=== PATIENT | male | born 1980 | race Caucasian/White ===

== ENCOUNTER 2017-02-21 17:08 | Inpatient (IN) | payer BC ==
[~2017-02-21] VITALS: Ht 175.3 cm; Wt 109.1 kg
[~2017-02-21 17:08] MED LIST: FLEXERIL 1010 MG/TAB PO; NORCO 325 MG-51 TAB PO
[2017-02-21] MEDS ORDERED: PRINZIDE 25 MG-1 TAB PO (17:14)
[2017-02-21 18:39] LABS: BASO # 0.1 (0.0-0.2); BASO % 0.4 % (0.0-2.0); EOS % 0.1 % (0-4.0); GRAN # 10.3 (1.4-6.5); GRAN % 74.6 % (42.2-75.2); HEMATOCRIT 45.4 % (42.0-52.0); HEMOGLOBIN 16.3 g/dl (13.5-18.0); LYMPH # 2.7 (1.2-3.4); LYMPH % 19.3 % (20.0-51.0); MEAN CELL VOLUME 86 fl (80.0-100.0); MEAN CORPUSCULAR HEMOGLOBIN 31 pg (27.0-31.0); MEAN CORPUSCULAR HGB CONC 36 g/dl (33.0-37.0); MEAN PLATELET VOLUME 10.9 fl (7.4-10.4); MONO # 0.7 (0.1-0.6); MONO % 5.2 % (1.7-9.3); PLATELET COUNT 224 K/mm3 (130-400); RED BLOOD COUNT 5.29 M/mm3 (4.20-5.60); REDCELL DISTRIBUTION WIDTH-CV 12.3 % (11.5-14.5); WHITE BLOOD COUNT 13.8 K/mm3 (4.8-10.8)
[2017-02-21 18:53] LABS: ANION GAP 15 mmol/L (7-16); BLOOD UREA NITROGEN 17 mg/dL (9-20); C-REACTIVE PROTEIN < 0.5 mg/dL (0.0-0.9); CALCIUM 10.2 mg/dL (8.4-10.2); CARBON DIOXIDE 28 mmol/L (22-30); CHLORIDE 94 mmol/L (98-107); CREATININE, serum 1.08 mg/dL (0.66-1.25); GLUCOSE 119 mg/dL (74-106); POTASSIUM 3.3 mmol/L (3.4-5.0); SODIUM 137 mmol/L (137-145)
[2017-02-21 20:40] LABS: CEREBROSPINAL TUBE #1; CSF APPEARANCE HAZY; CSF COLOR COLORLESS
[2017-02-21 20:51] LABS: CEREBROSPINAL TUBE #4; CSF APPEARANCE HAZY; CSF COLOR COLORLESS
[2017-02-21 22:51] LABS: CALCIUM 9.4 mg/dL (8.4-10.2); CREATININE, serum 1.01 mg/dL (0.66-1.25); POTASSIUM 3.2 mmol/L (3.4-5.0)
[2017-02-21 23:09] VITALS: BP 156/75; PULSE 101; TEMP 97.9
[2017-02-22 03:21] VITALS: BP 129/72; PULSE 78; TEMP 98
[2017-02-22 08:01] LABS: BASO % 0.2 % (0.0-2.0); GRAN # 9.7 (1.4-6.5); GRAN % 78.9 % (42.2-75.2); HEMATOCRIT 43.6 % (42.0-52.0); LYMPH # 2.1 (1.2-3.4); LYMPH % 16.8 % (20.0-51.0); MEAN CELL VOLUME 88 fl (80.0-100.0); MEAN CORPUSCULAR HEMOGLOBIN 30 pg (27.0-31.0); MEAN CORPUSCULAR HGB CONC 34 g/dl (33.0-37.0); MEAN PLATELET VOLUME 11.4 fl (7.4-10.4); MONO # 0.4 (0.1-0.6); MONO % 3.4 % (1.7-9.3); PLATELET COUNT 232 K/mm3 (130-400); RED BLOOD COUNT 4.94 M/mm3 (4.20-5.60); REDCELL DISTRIBUTION WIDTH-CV 12.6 % (11.5-14.5); WHITE BLOOD COUNT 12.3 K/mm3 (4.8-10.8)
[2017-02-22 08:48] VITALS: BP 127/83; PULSE 71; TEMP 97.9
[2017-02-22 12:55] VITALS: BP 150/98; PULSE 91; TEMP 98.6
[2017-02-22 16:10] VITALS: BP 151/96; PULSE 83; TEMP 98
[2017-02-22 18:12] LABS: HEMATOCRIT 43.1 % (42.0-52.0); HEMOGLOBIN 15.1 g/dl (13.5-18.0); MEAN CELL VOLUME 88 fl (80.0-100.0); MEAN CORPUSCULAR HEMOGLOBIN 31 pg (27.0-31.0); MEAN CORPUSCULAR HGB CONC 35 g/dl (33.0-37.0); MEAN PLATELET VOLUME 11.1 fl (7.4-10.4); PLATELET COUNT 219 K/mm3 (130-400); RED BLOOD COUNT 4.92 M/mm3 (4.20-5.60); REDCELL DISTRIBUTION WIDTH-CV 12.7 % (11.5-14.5); WHITE BLOOD COUNT 19.3 K/mm3 (4.8-10.8)
[2017-02-22 18:21] LABS: CALCIUM 9.5 mg/dL (8.4-10.2); CREATININE, serum 0.95 mg/dL (0.66-1.25); POTASSIUM 3.8 mmol/L (3.4-5.0)
[2017-02-22 21:20] VITALS: BP 138/97; PULSE 65; TEMP 97.5
[2017-02-23 00:38] VITALS: BP 142/88; PULSE 70; TEMP 97.7
[2017-02-23 05:45] VITALS: BP 122/72; PULSE 69; TEMP 98.2
[2017-02-23 07:32] LABS: HEMOGLOBIN 14.9 g/dl (13.5-18.0); MEAN CELL VOLUME 89 fl (80.0-100.0); MEAN CORPUSCULAR HEMOGLOBIN 31 pg (27.0-31.0); MEAN CORPUSCULAR HGB CONC 35 g/dl (33.0-37.0); MEAN PLATELET VOLUME 11.4 fl (7.4-10.4); PLATELET COUNT 195 K/mm3 (130-400); RED BLOOD COUNT 4.83 M/mm3 (4.20-5.60); REDCELL DISTRIBUTION WIDTH-CV 12.6 % (11.5-14.5); WHITE BLOOD COUNT 12.5 K/mm3 (4.8-10.8)
[2017-02-23 07:40] LABS: ADJUSTED CALCIUM 9.2 mg/dL (8.4-10.2); ALBUMIN 3.6 gm/dL (3.5-5.0); BILIRUBIN,TOTAL 0.9 mg/dL (0.0-1.0); CALCIUM 8.9 mg/dL (8.4-10.2); CREATININE, serum 1.03 mg/dL (0.66-1.25); POTASSIUM 3.9 mmol/L (3.4-5.0); TOTAL PROTEIN 6.5 gm/dL (6.4-8.2)
[2017-02-23 08:29] VITALS: BP 139/84; PULSE 62; TEMP 98.3
[2017-02-23 12:59] VITALS: BP 131/91; PULSE 68; TEMP 98.1
[2017-02-23 16:08] VITALS: BP 117/68; PULSE 66; TEMP 98.2
[2017-02-23 19:54] LABS: AMPHETAMINE URINE NEGATIVE; BARBITURATES URINE NEGATIVE; BENZODIAZEPINES URINE NEGATIVE; BUPRENORPHINE URINE NEGATIVE; METHADONE URINE NEGATIVE; OPIATES URINE NEGATIVE; OXYCODONE URINE NEGATIVE; PHENCYCLIDINE URINE NEGATIVE; PROPOXYPHENE URINE NEGATIVE; THC CANNABINOIDS URINE NEGATIVE
[2017-02-23 20:42] VITALS: BP 119/72; PULSE 70; TEMP 98.2
[2017-02-24 00:16] VITALS: BP 136/83; PULSE 67; TEMP 98.3
[2017-02-24 04:52] VITALS: BP 117/72; PULSE 61; TEMP 98.6
[2017-02-24 06:41] LABS: C-REACTIVE PROTEIN < 0.5 mg/dL (0.0-0.9)
[2017-02-24 07:17] LABS: THYROXINE (T4)-TOTAL 10.3 ug/dL (5.5-11.0)
[2017-02-24 08:32] VITALS: BP 159/95; PULSE 63; TEMP 98.2
[2017-02-24 11:26] VITALS: BP 141/88; PULSE 72; TEMP 98.3
[2017-02-24 15:42] VITALS: BP 150/95; PULSE 53; TEMP 98.5
[2017-02-24 20:10] VITALS: BP 143/103; PULSE 88; TEMP 97.6
[2017-02-25] VITALS (7 sets, daily range): BP systolic 124–165; BP diastolic 89–107; PULSE 64–88; TEMP 97.9–98.2
[2017-02-25 16:55] LABS: HEMATOCRIT 44.6 % (42.0-52.0); HEMOGLOBIN 15.7 g/dl (13.5-18.0); MEAN CELL VOLUME 86 fl (80.0-100.0); MEAN CORPUSCULAR HEMOGLOBIN 30 pg (27.0-31.0); MEAN CORPUSCULAR HGB CONC 35 g/dl (33.0-37.0); MEAN PLATELET VOLUME 10.9 fl (7.4-10.4); PLATELET COUNT 231 K/mm3 (130-400); RED BLOOD COUNT 5.16 M/mm3 (4.20-5.60); REDCELL DISTRIBUTION WIDTH-CV 12.4 % (11.5-14.5); WHITE BLOOD COUNT 12.6 K/mm3 (4.8-10.8)
[2017-02-25 17:05] LABS: ADJUSTED CALCIUM 8.4 mg/dL (8.4-10.2); ALBUMIN 4.7 gm/dL (3.5-5.0); BILIRUBIN,TOTAL 0.8 mg/dL (0.0-1.0); CREATININE, serum 0.94 mg/dL (0.66-1.25); POTASSIUM 4.1 mmol/L (3.4-5.0); TOTAL PROTEIN 7.8 gm/dL (6.4-8.2)
[2017-02-26 04:20] VITALS: BP 136/97; PULSE 67; TEMP 98.2
[2017-02-26 07:49] VITALS: BP 134/84; PULSE 76; TEMP 98.3
[2017-02-26 11:27] VITALS: BP 141/90; PULSE 64; TEMP 98
[2017-02-26] MEDS ORDERED: TOPROL XL 25MG25 MG PO (12:58)
== END 2017-02-26 13:10 | disposition home or self-care (01) | DRG 75 ==
LOC: COL.ER 17:08 → MEDICAL 21:10
PROVIDERS: Emergency Medicine; Family Medicine; Internal Medicine Cardiovascular Disease; Psychiatry & Neurology Neurology
PROC: 009U3ZX Drainage of Spinal Canal, Percutaneous Approach, Diagnostic (ICD-10-PCS; principal; 2017-02-21)
DX: A87.9 Viral meningitis, unspecified (principal); I16.9 Hypertensive crisis, unspecified; E87.6 Hypokalemia
CPT/HCPCS: 99222-AI; 99232-AI; 99233-AI; 99238; A9585; J0133; J0290; J0696; J1100; J1200; J1650; J2270; J2405; J2765; J3370; J7030; J7050